=== PATIENT | female | born 1965 ===

== ENCOUNTER → 2025-07-21 12:41 | Outpatient (REF) | payer OTHER, SELFPAY ==
[2025-07-21 15:03] LABS: Urine Character Clear (Clear)
[2025-07-21 15:11] LABS: ALT (SGPT) 91 U/L (0-35); AST (SGOT) 69 U/L (14-36); Albumin 4.8 g/dl (3.5-5.0); Alkaline Phosphatase 89 U/L (38-126); Blood Urea Nitrogen 6 mg/dl (7-17); Calcium 10.0 mg/dl (8.4-10.2); Carbon Dioxide 27 mmol/L (22-30); Chloride 99 mmol/L (98-107); Glucose 144 mg/dl (70-99); Lipase 119 U/L (23-300); Potassium 3.8 mmol/L (3.5-5.1); Sodium 136 mmol/L (135-145); Total Protein 7.7 g/dl (6.3-8.2); eGFR > 60.00
[2025-07-21 15:20] LABS: Hematocrit 45.0 % (37.0-47.0); Hemoglobin 15.7 g/dL (12.0-16.0); Mean Corp Hgb Conc. 34.9 g/dL (33.0-37.0); Mean Corpuscular Volume 87.9 fL (81.0-99.0); Platelet Count 196 10^3/uL (130-400); Red Cell Dist. Width 12.3 % (11.5-14.5)
[2025-07-21 16:51] LABS: Nucleated Red Blood Cells % 0 %
== END ==
LOC: RAD 12:41
PROVIDERS: ATTENDING PHYSICIAN Student in an Organized Health Care Education/Training Program
DX: R10.32 Left lower quadrant pain (principal)
CPT/HCPCS: 36415; 74177; 80053; 81003; 83690; 85025; Q9967